=== PATIENT | female | born 1995 | race Caucasian/White ===

== ENCOUNTER 2019-10-15 19:01 | Emergency (ER) | payer BC ==
--- NOTE | 2019-10-15 20:16 | ED ---
Lower Extremity - HPI Summary HPI Summary: 23 year old F presenting to [facility] complains of worsening right ankle pain and ecchymosis since last Saturday10/06/19. States she was running when her right ankle gave out and she fell. Hx right ankle sprain. This is her third ankle sprain. Has been wearing a boot. Took meloxicam this morning. States she vomited prior to arrival. The patient rates the pain 2/10 in severity. Symptoms aggravated by weight bearing. Symptoms alleviated by nothing. - History of Current Complaint Chief Complaint: EDExtremityLower Stated Complaint: RT ANKLE INJURY PER PT Time Seen by Provider: 10/15/19 20:08 Hx Obtained From: Patient Onset/Duration: Still Present Severity Currently: Mild Pain Intensity: 2 Pain Scale Used: 0-10 Numeric Timing: Constant Aggravating Factor(s): Weight Bearing Alleviating Factor(s): Nothing - Allergies/Home Medications Allergies/Adverse Reactions: Allergies Allergy/AdvReac Type Severity Reaction Status Date / Time No Known Allergies Allergy Verified 10/15/19 19:08 PMH/Surg Hx/FS Hx/Imm Hx Endocrine/Hematology History: Denies: Hx Diabetes Cardiovascular History: Denies: Hx Hypertension Musculoskeletal History: Reports: Other Musculoskeletal History - right ankle sprain Psychiatric History: Reports: Hx Anxiety, Hx Attention Deficit Hyperactivity Disorder - Surgical History Surgery Procedure, Year, and Place: wisdom teeth Infectious Disease History: No Infectious Disease History: Denies: Traveled Outside the [place] in Last 30 Days - Family History Known Family History: Positive: Other - cancer - Social History Alcohol Use: None Hx Substance Use: No Substance Use Type: Reports: None Hx Tobacco Use: No Smoking Status (MU): Never Smoked Tobacco Review of Systems Positive: Vomiting Positive: Other - right ankle pain Positive: Bruising - right ankle All Other Systems Reviewed And Are Negative: Yes Physical Exam - Summary Physical Exam Summary: VITAL SIGNS: Reviewed. GENERAL: Patient is a well-developed and nourished FEMALE who is lying comfortable in the stretcher. Patient is not in any acute respiratory distress. HEAD AND FACE: No signs of trauma. No ecchymosis, hematomas or skull depressions. No sinus tenderness. EYES: PERRLA, EOMI x 2, No injected conjunctiva, no nystagmus. EARS: Hearing grossly intact. Ear canals and tympanic membranes are within normal limits. MOUTH: Oropharynx within normal limits. NECK: Supple, trachea is midline, no adenopathy, no JVD, no carotid bruit, no c- spine tenderness, neck with full ROM. CHEST: Symmetric, no tenderness at palpation. LUNGS: Clear to auscultation bilaterally. No wheezing or crackles. CVS: Regular rate and rhythm, S1 and S2 present, no murmurs or gallops appreciated. ABDOMEN: Soft, non-tender. No signs of distention. No rebound, no guarding, and no masses palpated. Bowel sounds are normal. EXTREMITIES: FROM in all major joints, no edema, no cyanosis or clubbing. She has tenderness and some ecchymosis in the lateral aspect of the right foot NEURO: Alert and oriented x 3. No acute neurological deficits. Speech is normal and follows commands. SKIN: Dry and warm. Triage Information Reviewed: Yes Vital Signs On Initial Exam: Initial Vitals Temp Pulse Resp BP Pulse Ox 98.0 F 91 16 134/86 98 10/15/19 19:04 10/15/19 19:04 10/15/19 19:04 10/15/19 19:04 10/15/19 19:04 Vital Signs Reviewed: Yes Procedures - Sedation Patient Received Moderate/Deep Sedation with Procedure: No Diagnostics - Vital Signs Vital Signs Temp Pulse Resp BP Pulse Ox 10/15/19 19:04 98.0 F 91 16 134/86 98 - Laboratory Result Diagrams: 10/15/19 21:07 10/15/19 21:07 Lab Statement: Any lab studies that have been ordered have been reviewed, and results considered in the medical decision making process. - Radiology Right ankle x-ray Radiology Interpretation Completed By: ED Physician Summary of Radiographic Findings: No acute process. Pending official report Right foot x-ray Radiology Interpretation Completed By: ED Physician Summary of Radiographic Findings: No acute process. Pending official report Lower Extremity Course/Dx - Course Assessment/Plan: 23 year old F presenting [place] [facility] complains of worsening right ankle pain and ecchymosis since last Saturday10/06/19. States she was running when her right ankle gave out and she fell. Hx right ankle sprain. Has been wearing a boot. Took meloxicam this morning. States she vomited prior to arrival. The patient rates the pain 2/10 in severity. Symptoms aggravated by weight bearing. Symptoms alleviated by nothing. Ankle and foot x ray negative for fracture and dislocation. Patient requested blood work to r/o infection. CBC and CRP within normal limits. Patient is worried of an infection. Patient s parents requested via iphone an MRI to r/o fracture or any other abnormality. I explained to the patient and their parents that it is not possible to do an MRI at this time since there is no indication and it is not available at this time at [facility] Patient was given Zofran for nausea and Ibuprofen for pain. Patient reports pain. Patient and her parents request an ankle and foot CT to r/ o occult fracture. At this time patient still awaiting for CT results. At this time patient will be signed out to Dr. Beckman to f/u CT results and further disposition. - Diagnoses Differential Diagnosis/HQI/PQRI: Positive: Arthritis, Bursitis, Cellulitis, Dislocation, Fracture (Closed), Sprain, Strain Provider Diagnoses: Ankle pain Discharge ED - Sign-Out/Discharge Documenting (check all that apply): Sign-Out Patient Signing out patient TO: Aishwarya Beckman - Discharge Plan Condition: Stable Disposition: HOME Patient Education Materials: Arthralgia (ED), Swollen Joint (ED) Forms: *School Release Referrals: [facility] - MRDamian [Primary Care Provider] - 2 Days Additional Instructions: PLEASE FOLLOW UP WITH [facility] IN 1-3 DAYS. RETURN TO THE EMERGENCY DEPARTMENT FOR ANY NEW OR WORSENING SYMPTOMS. - Attestation Statements Document Initiated by Jaelyn: Yes Documenting Scribe: Karon Man Provider For Whom Jaelyn is Documenting (Include Credential): Tashi Ramirez MD Scribe Attestation: IKaron, scribed for Tashi Ramirez MD on 10/16/19 at 0722. Scribe Documentation Reviewed: Yes Provider Attestation: The documentation as recorded by the Karon alcantar accurately reflects the service I personally performed and the decisions made by , Tashi Ramirez MD Status of Scribe Document: Viewed
[2019-10-15 21:17] LABS: ABS Lymphocytes 2.9 10^3/ul (1.0-4.8); ABS Monocytes 0.6 10^3/ul (0-0.8); ABS Neutrophils 8.1 10^3/ul (1.5-7.7); Eosinophil % 0.1 %; Hematocrit 38 % (35-47); Hemoglobin 12.9 g/dL (12.0-16.0); Mean Corpuscular HGB Conc 34 g/dL (31-36); Mean Corpuscular Hemoglobin 29 pg (27-31); Mean Corpuscular Volume 86 fL (80-97); Mean Platelet Volume 7.2 fL (7.4-10.4); Platelet Count 354 10^3/uL (150-450); Red Blood Count 4.49 10^6 /uL (3.70-4.87); Red Cell Distribution Width 14 % (10-15); White Blood Count 11.7 10^3/uL (3.5-10.8)
[2019-10-15] MEDS ORDERED: Ondansetron ODT TAB* 4 MG SL PRN (21:39)
[2019-10-15] MEDS ORDERED: Ibuprofen TAB* 600 MG PO ONE (21:40)
[2019-10-15 21:47] LABS: C Reactive Protein 20.13 mg/L (<8.01)
--- NOTE | 2019-10-15 22:00 | ED ---
Progress - Progress Note Progress Note: This pt is a sign out for Dr. Beckman from Dr. Ramirez at shift change [address] and disposition. - Results/Orders Results/Orders: Her Lower Extremity CT shows the followin. No acute bony abnormality. 2. Subcutaneous edema/hematoma over lateral ankle. 3. Tiny ankle joint effusion. ED physician has reviewed this report. Course/Dx - Course Course Of Treatment: This pt is a sign out for Dr. Beckman from Dr. Ramirez at shift change 2200 10/15/[address] and disposition. CT demonstrated no acute fracture. Patient discharged to home. Advised ice, elevation. Follow -up with PCP. Follow-up sooner for any worsening symptoms. - Diagnoses Provider Diagnoses: Ankle pain Discharge ED - Sign-Out/Discharge Documenting (check all that apply): Patient Departure - discharge - Discharge Plan Condition: Stable Disposition: HOME Patient Education Materials: Arthralgia (ED), Swollen Joint (ED) Forms: *School Release Referrals: [facility] - Damian BARRAGAN [Primary Care Provider] - 2 Days Additional Instructions: PLEASE FOLLOW UP WITH [facility] IN 1-3 DAYS. RETURN TO THE EMERGENCY DEPARTMENT FOR ANY NEW OR WORSENING SYMPTOMS. - Billing Disposition and Condition Condition: STABLE Disposition: Home - Attestation Statements Document Initiated by Jaelyn: Yes Documenting Scribe: Peña Dacosta Provider For Whom Jaelyn is Documenting (Include Credential): Aishwarya Beckman MD Scribe Attestation: Peña Chirinos, scribed for Aishwarya Beckman MD on 10/16/19 at 0114. Scribe Documentation Reviewed: Yes Provider Attestation: The documentation as recorded by the Peña alcantar accurately reflects the service I personally performed and the decisions made by me, Aishwarya Beckman MD Status of Scribe Document: Viewed
[2019-10-15 22:34] LABS: Albumin 4.3 g/dL (3.2-5.2); Albumin/Globulin Ratio 1.3 (1-3); BUN/Creatinine Ratio 17.1 (8-20); Calcium 9.7 mg/dL (8.6-10.3); EGFR African American 116.2 (>60); EGFR Non-African American 96.1 (>60); Globulin 3.3 g/dL (2-4); Potassium 3.8 mmol/L (3.5-5.0); Total Bilirubin 0.5 mg/dL (0.2-1.0); Total Protein 7.6 g/dL (6.4-8.9)
[2019-10-15] MEDS ORDERED: fentaNYL* 50 MCG/ML 2 ML VIAL (100 MCG VIAL) IV SLOW PU ONE (22:38)
[2019-10-16] MEDS ORDERED: O ndansetron ODT 4MG 5TAB PRPK 4 MG PAK PO ONE (00:03)
[2019-10-16 00:27] VITALS: BP 123/88
== END 2019-10-16 00:10 | disposition home or self-care (01) ==
LOC: ED 19:01
DX: M25.571 Pain in right ankle and joints of right foot (principal); M25.471 Effusion, right ankle; S90.01XA Contusion of right ankle, initial encounter; W18.30XA Fall on same level, unspecified, initial encounter; Y93.02 Activity, running; Y92.9 Unspecified place or not applicable; R11.10 Vomiting, unspecified
CPT/HCPCS: 36415; 80053; 85025; 86140; 87040; 99282; A9270-GY